=== PATIENT | male | born 1985 | race Caucasian/White ===

== ENCOUNTER 2022-10-17 11:17 | Emergency (ER) | payer BC ==
[~2022-10-17] VITALS: Ht 177.8 cm; Wt 70.5 kg
[2022-10-17 11:22] VITALS: BP 150/103
[2022-10-17] MEDS ORDERED: OXYC-145 PO (13:09)
== END 2022-10-17 13:21 | disposition home or self-care (01) ==
LOC: ER 11:17
DX: M25.461 Effusion, right knee (principal); R05.9 Cough, unspecified; M25.561 Pain in right knee; Z79.899 Other long term (current) drug therapy
CPT/HCPCS: 29505; 99283